=== PATIENT | female | born 1960 | race Caucasian/White ===

== ENCOUNTER 2017-03-06 16:43 | Inpatient (IN) | payer OTHER ==
[~2017-03-06] VITALS: Ht 152.4 cm; Wt 60.8 kg
[~2017-03-06 16:43] MED LIST: COLACE100 MG PO; FLA500 PO; LEVOFLOXACIN500 M1 PO; MOTRIN800 MG PO; VICODIN ES1 TAB PO
[2017-03-06 18:07] LABS: BASOPHIL % 0.8 % (0-2); PLATELET COUNT 221 x10^3mcL (130-400); RED CELL DISTRIBUTION WIDTH 12.4 % (11.5-14.5)
[2017-03-06 18:19] LABS: microscopic required? NO
[2017-03-06 18:30] LABS: CALCIUM 10.3 mg/dL (8.5-10.1); CARBON DIOXIDE 27.2 mmol/L (21-32); CHLORIDE SERUM 108 mmol/L (98-107); CREATININE SERUM 0.7 mg/dL (0.6-1.0); GFR1 > 60 mL/min; GLUCOSE SERUM 134 mg/dL (74-106); POTASSIUM SERUM 3.9 mmol/L (3.5-5.1); SODIUM SERUM 141 mmol/L (136-145)
[2017-03-06 18:34] LABS: ALKALINE PHOSPHATASE 76 U/L (46-116); ALT/SGPT 20 U/L (14-59); AMYLASE 94 U/L (25-115); AST/SGOT 18 U/L (15-37); BILIRUBIN TOTAL 0.5 mg/dL (0.20-1.00); LIPASE 108 IU/L (73-393); urine erythrocyte NEGATIVE (NEGATIVE)
[2017-03-06 20:24] LABS: T3 TOTAL 1.23 ng/mL
[2017-03-06 20:27] LABS: FREE T4 1.13 ng/dL (0.76-1.46); FREE THYROXINE INDEX 3.5 ug/dL (1.4-4.5); T4(THYROXINE) 9.8 ug/dL (4.7-13.3)
[2017-03-06 20:28] VITALS: BP 131/72
[2017-03-06 20:53] LABS: CHOLESTEROL/HDL RATIO 2.2; MAGNESIUM 2.2 mg/dL (1.8-2.4); PHOSPHOROUS 2.2 mg/dL (2.5-4.9)
[2017-03-07 06:31] VITALS: BP 125/55
[2017-03-07 08:19] VITALS: Ht 152.4 cm; Wt 60.8 kg
[2017-03-07 09:21] VITALS: BP 124/60
[2017-03-07 11:32] VITALS: BP 99/45
[2017-03-07 16:27] VITALS: BP 117/78
[2017-03-07 16:55] VITALS: BP 117/58
[2017-03-07 21:39] VITALS: BP 114/60
[2017-03-08 05:38] VITALS: BP 113/75
[2017-03-08 06:29] LABS: BASOPHIL % 0.1 % (0-2); PLATELET COUNT 151 x10^3mcL (130-400); RED CELL DISTRIBUTION WIDTH 13.1 % (11.5-14.5)
[2017-03-08 06:42] LABS: CALCIUM 9.3 mg/dL (8.5-10.1); CARBON DIOXIDE 27.4 mmol/L (21-32); CHLORIDE SERUM 109 mmol/L (98-107); CREATININE SERUM 0.6 mg/dL (0.6-1.0); GFR1 > 60 mL/min; GLUCOSE SERUM 122 mg/dL (74-106); MAGNESIUM 2.1 mg/dL (1.8-2.4); PHOSPHOROUS 1.7 mg/dL (2.5-4.9); SODIUM SERUM 141 mmol/L (136-145)
[2017-03-08 09:32] VITALS: BP 123/60
[2017-03-08 13:49] VITALS: BP 121/61
[2017-03-08 20:48] VITALS: BP 143/73
[2017-03-09 05:41] VITALS: BP 140/76
[2017-03-09 06:57] LABS: BASOPHIL % 0.4 % (0-2); PLATELET COUNT 163 x10^3mcL (130-400); RED CELL DISTRIBUTION WIDTH 12.8 % (11.5-14.5)
[2017-03-09 07:15] LABS: CALCIUM 9.1 mg/dL (8.5-10.1); CARBON DIOXIDE 28.9 mmol/L (21-32); CHLORIDE SERUM 110 mmol/L (98-107); CREATININE SERUM 0.7 mg/dL (0.6-1.0); GFR1 > 60 mL/min; GLUCOSE SERUM 103 mg/dL (74-106); MAGNESIUM 2.2 mg/dL (1.8-2.4); PHOSPHOROUS 1.4 mg/dL (2.5-4.9); POTASSIUM SERUM 3.8 mmol/L (3.5-5.1); SODIUM SERUM 142 mmol/L (136-145)
[2017-03-09 08:18] VITALS: BP 146/71
[2017-03-09] MEDS ORDERED: FLA500 PO (14:08)
[2017-03-09] MEDS ORDERED: CIPRO500 MG PO (14:08)
[2017-03-09] MEDS ORDERED: LAC PO (14:09)
[2017-03-09] MEDS ORDERED: NORCO1 TA2 PO (14:10)
[2017-03-09] MEDS ORDERED: COLACE100 MG PO (14:10)
[2017-03-09 14:29] VITALS: BP 146/71
== END 2017-03-09 16:44 | disposition home or self-care (01) | DRG 263 ==
LOC: ED 16:43 → MU 19:20 → DU 19:20 → MU 03-07 11:56
PROVIDERS: Emergency Medicine; ADMIT Family Medicine
PROC: 0FT44ZZ Resection of Gallbladder, Percutaneous Endoscopic Approach (ICD-10-PCS; principal; 2017-03-06)
PROC: 0F944ZZ Drainage of Gallbladder, Percutaneous Endoscopic Approach (ICD-10-PCS; 2017-03-06)
DX: K80.00 Calculus of gallbladder with acute cholecystitis without obstruction (principal); N17.0 Acute kidney failure with tubular necrosis; E87.8 Other disorders of electrolyte and fluid balance, not elsewhere classified; E83.39 Other disorders of phosphorus metabolism; R73.9 Hyperglycemia, unspecified; E83.52 Hypercalcemia; Z68.26 Body mass index [BMI] 26.0-26.9, adult; D64.9 Anemia, unspecified
CPT/HCPCS: 83880; 84439; 94150; J0690; J1170; J1885; J1956; J2001; J2405; J2704; J2710; J2765; J3010; J3490; J7030; J7120; Q0092

== ENCOUNTER 2017-03-23 11:21 | Emergency (ER) | payer OTHER ==
[~2017-03-23 11:21] MED LIST changes: +CIPRO500 MG PO; +LAC PO; +NORCO1 TA2 PO
[2017-03-23 11:27] VITALS: BP 139/77
== END 2017-03-23 12:08 | disposition home or self-care (01) ==
LOC: ED 11:21
DX: Z48.02 Encounter for removal of sutures (principal)